=== PATIENT | female | born 1990 | race Caucasian/White ===

== ENCOUNTER 2017-02-04 21:07 | Emergency (ER) | payer OTHER ==
[2017-02-04 21:13] VITALS: RESP 16; TEMP 98.1
--- NOTE | 2017-02-04 21:25 | EDPHY ---
H & P Time Seen by Provider: 02/04/17 21:14 HPI/ROS: CHIEF COMPLAINT: Right ankle injury HISTORY OF PRESENT ILLNESS: Tripped at home injuring her right ankle, can't walk on it. Happened just prior to arrival. 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 Normal range of motion of the right knee. Proximal tibia and fibula are nontender all the way down to just above the ankle 2 cm. Lateral malleolus not tender, medial malleolus tender to palpation. 5th metatarsal in the foot nontender. Skin intact without laceration. Normal motor sensory and dorsalis pedis pulse. Emergency Department course/MDM: Patient declined pain medications. Ice pack and x-ray and crutches. 2140: Right ankle x-ray personally interpreted as negative except for soft tissue swelling, ankle sprain. Stirrup splint and orthopedic referral. Smoking Status: Light smoker Constitutional: Initial Vital Signs Temperature (C) 36.7 C 02/04/17 21:08 Heart Rate 111 H 02/04/17 21:08 Respiratory Rate 16 02/04/17 21:08 Blood Pressure 124/87 H 02/04/17 21:08 O2 Sat (%) 96 02/04/17 21:08 O2 Delivery Mode Room Air Allergies/Adverse Reactions: hydrocodone Allergy (Verified 02/04/17 21:13) oxycodone Allergy (Verified 02/04/17 21:13) Home Medications: Medication Instructions Recorded Lexapro 10 MG 02/04/17 traZODone 02/04/17 MDM/Departure - Depart Disposition: Home, Routine, Self-Care Clinical Impression: Sprain of ankle, right Qualifiers: Encounter type: initial encounter Involved ligament of ankle: unspecified ligament Qualified Code(s): S93.401A - Sprain of unspecified ligament of right ankle, initial encounter Condition: Good Instructions: Ankle Sprain (ED) Additional Instructions: Please follow-up with the [place] [facility] in the next week. Referrals: JAMEEL ANN [Other] - As per Instructions
[2017-02-04 22:03] VITALS: BP 143/80; PULSE 99; O2SAT 95
== END 2017-02-04 22:23 | disposition home or self-care (01) ==
DX: S93.401A Sprain of unspecified ligament of right ankle, initial encounter (principal); F17.200 Nicotine dependence, unspecified, uncomplicated; W18.40XA Slipping, tripping and stumbling without falling, unspecified, initial encounter; Y92.009 Unspecified place in unspecified non-institutional (private) residence as the place of occurrence of the external cause
CPT/HCPCS: L4350

== ENCOUNTER 2017-09-12 18:59 | Emergency (ER) | payer MEDICAID ==
[2017-09-12] MEDS ORDERED: ONDANSETRON 4 MG/2 ML VIAL IVP ONE (19:41)
[2017-09-12] MEDS ORDERED: NS 1,000 ML IV ONE (19:41)
[2017-09-12 19:44] LABS: PLATELET COUNT 294 10^3/uL (150-400)
[2017-09-12] MEDS ORDERED: fentaNYL 100 MCG/2 ML INJ IVP ONE (20:19)
--- NOTE | 2017-09-12 22:10 | EDPHY ---
H & P Stated Complaint: right side abd pain for 2days and emesis - Personal History LMP (Females 10-55): 1-7 Days Ago Current Tetanus/Diphtheria Vaccine: Yes Current Tetanus Diphtheria and Acellular Pertussis (TDAP): Yes Tetanus Vaccine Date: 2007 - Medical/Surgical History Hx Asthma: No Hx Chronic Respiratory Disease: No Hx Diabetes: No Hx Cardiac Disease: No Hx Renal Disease: No Hx Cirrhosis: No Hx Alcoholism: No Hx HIV/AIDS: No Hx Splenectomy or Spleen Trauma: No Other PMH: ear tubes as child, EATING DISORDER, D&C. 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 She reports the onset of symptoms over the last 2-3 days. They have been slowly worsening. They do wax and wane in intensity. The pain does not radiate. Mild nausea without vomiting. No precipitating factors including food. No fevers. No diarrhea, constipation or urinary symptoms, no cough, no shortness of breath, no chest pain. However review of systems: A 10 point review of systems was obtained and other than described above was negative (Bravo Suarez) - Physical Exam Exam: General Appearance: Alert, nontoxic. Eyes: Pupils equal and round no pallor or injection. ENT, Mouth: Mucous membranes moist. Respiratory: There are no retractions, lungs are clear to auscultation. Cardiovascular: Regular rate and rhythm. Gastrointestinal: Bowel sounds normal. Abdomen is soft, nondistended. Mild tenderness in the right upper quadrant without Brice sign. No peritoneal signs noted. Neurological: Alert and oriented x4. Strength and sensation intact and symmetrical. Skin: Warm and dry, no rashes. Musculoskeletal: Neck is supple non tender. Extremities are symmetrical, full range of motion. Psychiatric: Patient is oriented X 3, there is no agitation. (Bravo Suarez) Constitutional: Initial Vital Signs Temperature (C) 37.7 C 09/12/17 19:07 Heart Rate 83 09/12/17 19:07 Respiratory Rate 18 09/12/17 19:07 Blood Pressure 134/90 H 09/12/17 19:07 O2 Sat (%) 95 09/12/17 19:07 O2 Delivery Mode Room Air Allergies/Adverse Reactions: hydrocodone Allergy (Verified 09/12/17 19:11) oxycodone Allergy (Verified 09/12/17 19:11) Home Medications: Medication Instructions Recorded NK [No Known Home Meds] 09/12/17 Medical Decision Making - Diagnostics Imaging: Discussed imaging studies w/ call center agent Radiologist ED Course/Re-evaluation: Patient was discussed with my secondary supervising physician Dr. Haroldo England. Patient presents to the emergency department for abdominal pain. She is nontoxic. Vital signs are stable. Serial abdominal exams are performed in the emergency room including just prior to discharge and remain benign. Blood studies and ultrasound unremarkable. She is discharged home. Home care is discussed. She is asked to follow up with Gastroenterology for recheck. Return precautions are given. (Bravo Suarez) I did not see this patient while she was in the emergency department. However her care was discussed with the PA patient was in the department. I agree with treatment plan and management (Haroldo England S) Differential Diagnosis: Included but not limited to gastritis, duodenitis, peptic ulcer disease, biliary tract disease, pancreatitis, colitis, urinary tract disease an associated complications (Bravo Suarez) - Data Points Laboratory Results: Laboratory Results 09/12/17 19:10 09/12/17 20:20 Medications Given: Discontinued Medications Fentanyl (Sublimaze) 100 mcg IVP EDNOW ONE Stop: 09/12/17 20:20 Last Admin: 09/12/17 20:27 Dose: 100 mcg Sodium Chloride (Ns) 1,000 mls @ 0 mls/hr IV ONCE ONE; Wide Open PRN Reason: Protocol Stop: 09/12/17 19:42 Last Admin: 09/12/17 19:45 Dose: 1,000 mls Ondansetron HCl (Zofran) 4 mg IVP EDNOW ONE Stop: 09/12/17 19:42 Last Admin: 09/12/17 19:45 Dose: 4 mg Departure - Departure Disposition: Home, Routine, Self-Care Clinical Impression: Abdominal pain Qualifiers: Abdominal location: right upper quadrant Qualified Code(s): R10.11 - Right upper quadrant pain Condition: Good Instructions: Acute Abdominal Pain (ED) Additional Instructions: Follow-up with primary care doctor or picking table worker for continued evaluation and care I recommend starting Zantac 150 mg twice a day for the next 10 days If symptoms worsen or new symptoms develop return to the emergency room for recheck Referrals: NONE *PRIMARY CARE P,. [Primary Care Provider] - As per Instructions [facility],. [Clinic] - As per Instructions Cem Rain MD, FACG [Medical Doctor] - As per Instructions
[2017-09-12 22:17] VITALS: BP 113/84
== END 2017-09-12 22:25 | disposition home or self-care (01) ==
DX: R10.11 Right upper quadrant pain (principal); E86.9 Volume depletion, unspecified; F17.200 Nicotine dependence, unspecified, uncomplicated
CPT/HCPCS: 96374; J2405; J3010